=== PATIENT | female | born 1940 | race Caucasian/White ===

== ENCOUNTER 2020-05-28 13:18 | Outpatient (CLI) | payer MEDICARE, OTHER ==
[2020-05-28 16:45] LABS: Hemoglobin 10.3 g/dL (12.0-15.5); Mean Corpuscular HGB CONC 31.3 g/dL (32.0-36.0); Mean Corpuscular Hemoglobin 27.6 pg (27.0-33.0); Mean Corpuscular Volume 88.2 fl (81.6-98.3); Mean Platelet Volume 11.3 fl (7.4-10.4); Platelet Count 126 10x3/uL (150-450); RBC Distribution Width 13.2 % (11.5-14.5); Red Blood Cell (RBC) Count 3.73 10x6/uL (3.90-5.03); White Blood Cell (WBC) Count 4.5 10x3/uL (3.5-10.5)
[2020-05-28 16:55] LABS: Anion Gap 8 mmol/L (10-20); BUN (Urea Nitrogen) 37 mg/dL (9.8-20.1); Calc. Creatinine Clearance 0 mL/min (70-130); Carbon Dioxide 33 mmol/L (23-31); Chloride 104 mmol/L (98-107); Glucose 75 mg/dL (83-110); Potassium 5.1 mmol/L (3.5-5.1); Sodium 140 mmol/L (136-145)
[2020-05-28 17:01] LABS: INR-International Normal Ratio 0.9; PTT 29.5 sec (22.0-33.0); Prothrombin Time 10.3 sec (9.5-12.1)
[2020-05-29 01:48] LABS: SARS-CoV-2 PCR by NAA Not Detected (NotDetected)
== END 2020-05-28 13:19 | disposition home or self-care (01) ==
LOC: LABBT 13:18
PROVIDERS: ATTEND Surgery
DX: Z01.818 Encounter for other preprocedural examination (principal); Z20.822 Contact with and (suspected) exposure to COVID-19
CPT/HCPCS: 80048; 85027; 85610; 85730; 93005; U0003; U0005; 87635; 93010

== ENCOUNTER 2020-06-02 05:52 | Inpatient (IN) | payer MEDICARE, OTHER ==
[2020-06-02] MEDS ORDERED: Thrombin 5000 UNITS/5 ML VIAL ONE (06:36)
[2020-06-02] MEDS ORDERED: Fentanyl 250 MCG/5 ML VIAL ONE (06:48)
[2020-06-02] MEDS ORDERED: Dexmedetomidine 200 MCG/2 ML VIAL ONE (06:48)
[2020-06-02] MEDS ORDERED: Ketamine 50 MG/ML (10ML VIAL) ONE (06:48)
[2020-06-02] MEDS ORDERED: Acetaminophen/Codeine 30-300mg Tablet PO PRN (07:27)
[2020-06-02] MEDS ORDERED: Acetaminophen 325 MG TAB PO PRN (07:27)
[2020-06-02] MEDS ORDERED: Bisacodyl 10 MG SUPP PR PRN (07:27)
[2020-06-02] MEDS ORDERED: traMADol HCl 50 MG TAB PO PRN (07:27)
[2020-06-02] MEDS ORDERED: Ondansetron PF 4 MG/2 ML Vial IVP PRN (07:27)
[2020-06-02] MEDS ORDERED: tiZANidine HCl 4 MG TAB PO PRN (07:27)
[2020-06-02] MEDS ORDERED: Milk Of Magnesia 30 ML UDCUP PO PRN (07:27)
[2020-06-02] MEDS ORDERED: Mag-Al 1200 mg/1200 mg/30 ML UDCUP PO PRN (07:27)
[2020-06-02] MEDS ORDERED: ESTROGENS CONJUGATED VG SCH (07:30)
[2020-06-02] MEDS ORDERED: Rocuronium Bromide 10 MG/ML (10ML VIAL) ONE (07:34)
[2020-06-02] MEDS ORDERED: Ondansetron PF 4 MG/2 ML Vial ONE (07:34)
[2020-06-02] MEDS ORDERED: Lidocaine 1% PF 5 ML VIAL ONE (07:34)
[2020-06-02] MEDS ORDERED: Dexamethasone 20 MG/5 ML VIAL ONE (07:34)
[2020-06-02] MEDS ORDERED: PROPOFOL 200 MG/20 ML VIAL ONE (07:34)
[2020-06-02] MEDS ORDERED: Estrogens, Conjugated 30 GM TUBE VAG SCH (08:00)
[2020-06-02] MEDS ORDERED: Cholecalciferol 1,000 UNITS (25 MCG) TAB PO SCH (09:00)
[2020-06-02] MEDS ORDERED: SUGAMMADEX SODIUM 200 MG/2 ML VIAL ONE (09:27)
[2020-06-02] MEDS ORDERED: PACU-Morphine 4MG/ML VIAL SLOW IVP PRN (09:46)
[2020-06-02] MEDS ORDERED: Morphine Sulfate 2 MG/ML SYRINGE SLOW IVP PRN (09:46)
[2020-06-02] MEDS ORDERED: Promethazine HCl 25 MG/ML VIAL IM PRN (09:46)
[2020-06-02] MEDS ORDERED: Promethazine HCl 25 MG/ML VIAL SLOW IVP PRN (09:46)
[2020-06-02] MEDS ORDERED: HYDROmorphone 2 MG/ML VIAL SLOW IVP PRN (09:46)
[2020-06-02] MEDS ORDERED: Ondansetron HCl/PF 4 MG/2 ML Vial IVP PRN (09:46)
[2020-06-02] MEDS ORDERED: HYDROmorphone 2 MG/ML VIAL ONE (11:02)
[2020-06-02] MEDS ORDERED: Morphine 4 MG/ML VIAL ONE ×5 (11:26→12:54)
[2020-06-02 12:08] VITALS: BMI 22.9
[2020-06-02] MEDS: CEFAZOLIN 2 GM in Premix Bag 1 BAG IVPB SCH ×2 (14:00→22:33)
[2020-06-02] MEDS: Sodium Chloride 0.9% 1,000 ML IV SCH ×2 (14:30→21:43)
[2020-06-02] MEDS: Cholecalciferol 1,000 UNITS (25 MCG) TAB PO SCH (14:30)
[2020-06-02] MEDS: fentaNYL 50 mcg/hour Patch TD SCH (14:30)
[2020-06-02] MEDS: Furosemide 20 MG TAB PO SCH (14:31)
[2020-06-02] MEDS: Thyroid 30 MG TAB PO SCH (14:31)
[2020-06-02] MEDS: PARoxetine 20 MG TAB PO SCH (14:31)
[2020-06-02] MEDS: Morphine 2 MG/ML VIAL SLOW IVP PRN ×2 (19:51→22:33)
[2020-06-02] MEDS: Pregabalin 75 MG CAP PO SCH (19:52)
[2020-06-02] MEDS: Atorvastatin Calcium 10 MG TAB PO SCH (19:52)
[2020-06-03] MEDS: Morphine 2 MG/ML VIAL SLOW IVP PRN ×7 (04:29→21:17)
[2020-06-03] MEDS: CEFAZOLIN 2 GM in Premix Bag 1 BAG IVPB SCH ×3 (05:25→21:53)
[2020-06-03 06:35] LABS: #Lymphocytes 1.2 thou/uL (1.20-3.40); #Monocytes 0.8 thou/uL (0.11-0.59); #Neutrophils 7.7 thou/uL (1.40-6.50); %Basophils 0.3 % (0.0-1.0); %Eosinophils 0.2 % (0.0-10.0); %Monocytes 8.5 % (0.0-10.0); %Neutrophils 78.9 % (42.0-75.0); Hemoglobin 9.8 g/dL (12.0-16.0); Mean Corpuscular HGB CONC 33.2 g/dL (32.0-36.0); Mean Corpuscular Hemoglobin 28.9 pg (27.0-31.0); Mean Corpuscular Volume 86.8 fL (78.0-98.0); Mean Platelet Volume 8.6 fL (7.4-10.4); Platelet Count 127 thou/uL (130-400); RBC Distribution Width 12.2 % (11.5-14.5); White Blood Cell (WBC) Count 9.7 thou/uL (4.8-10.8)
[2020-06-03 06:53] LABS: Anion Gap 10 mmol/L (10-20); BUN (Urea Nitrogen) 19 mg/dL (9.8-20.1); Calc. Creatinine Clearance 53 mL/min (70-130); Calcium 8.8 mg/dL (7.8-10.44); Carbon Dioxide 29 mmol/L (23-31); Chloride 105 mmol/L (98-107); Glucose 105 mg/dL (83-110); Sodium 140 mmol/L (136-145)
[2020-06-03] MEDS: tiZANidine HCl 4 MG TAB PO PRN (08:16)
[2020-06-03] MEDS: Cholecalciferol 1,000 UNITS (25 MCG) TAB PO SCH (08:17)
[2020-06-03] MEDS: Furosemide 20 MG TAB PO SCH ×2 (08:17→10:41)
[2020-06-03] MEDS: PARoxetine 20 MG TAB PO SCH (08:17)
[2020-06-03] MEDS: Dexamethasone 20 MG/5 ML VIAL SLOW IVP SCH ×2 (10:30→16:52)
[2020-06-03] MEDS: Thyroid 30 MG TAB PO SCH (10:50)
[2020-06-03] MEDS ORDERED: Dexamethasone 4 mg/ml Vial SLOW IVP SCH (11:45)
[2020-06-03] MEDS: HYDROcodone/Acetaminophen 7.5/325 mg Tablet PO PRN ×2 (11:46→17:35)
[2020-06-03] MEDS: Sodium Chloride 0.9% 1,000 ML IV SCH ×2 (11:51→23:48)
[2020-06-03 19:12] VITALS: BP 117/56; TEMP 98.6
[2020-06-03] MEDS: Atorvastatin Calcium 10 MG TAB PO SCH (21:13)
[2020-06-03] MEDS: Pregabalin 75 MG CAP PO SCH (21:13)
[2020-06-04] MEDS: Morphine 2 MG/ML VIAL SLOW IVP PRN ×2 (00:56→13:54)
[2020-06-04] MEDS: tiZANidine HCl 4 MG TAB PO PRN (06:13)
[2020-06-04] MEDS: CEFAZOLIN 2 GM in Premix Bag 1 BAG IVPB SCH (06:13)
[2020-06-04] MEDS: HYDROcodone/Acetaminophen 7.5/325 mg Tablet PO PRN ×2 (06:14→13:48)
[2020-06-04] MEDS ORDERED: Dexamethasone 4 MG TAB PO SCH ×2 (08:15→12:00)
[2020-06-04] MEDS: fentaNYL 50 mcg/hour Patch TD SCH (08:51)
[2020-06-04] MEDS: PARoxetine 20 MG TAB PO SCH (08:52)
[2020-06-04] MEDS: Cholecalciferol 1,000 UNITS (25 MCG) TAB PO SCH (08:53)
[2020-06-04] MEDS: Furosemide 20 MG TAB PO SCH (08:54)
[2020-06-04] MEDS: Thyroid 30 MG TAB PO SCH (08:59)
[2020-06-04] MEDS: Sodium Chloride 0.9% 1,000 ML IV SCH (13:55)
[2020-06-04] MEDS ORDERED: Gabapentin 100 MG CAP PO SCH (14:00)
[2020-06-04] MEDS ORDERED: Pregabalin 75 MG CAP PO SCH (21:00)
[2020-06-05] MEDS ORDERED: Dexamethasone 1 MG TAB PO SCH (06:00)
[2020-06-06] MEDS ORDERED: Dexamethasone 1 MG TAB PO SCH (06:00)
[2020-06-07] MEDS ORDERED: Dexamethasone 1 MG TAB PO SCH (06:00)
== END 2020-06-04 16:00 | DRG 472 ==
LOC: SDC 05:52 → ONC 07:27 → SDC 06-03 14:46
PROVIDERS: ADMIT Surgery; ATTEND Surgery
PROC: 0RG20A0 Fusion of 2 or more Cervical Vertebral Joints with Interbody Fusion Device, Anterior Approach, Anterior Column, Open Approach (ICD-10-PCS; principal; 2020-06-03)
PROC: 0RB30ZZ Excision of Cervical Vertebral Disc, Open Approach (ICD-10-PCS; 2020-06-03)
PROC: 01N10ZZ Release Cervical Nerve, Open Approach (ICD-10-PCS; 2020-06-03)
DX: M48.02 Spinal stenosis, cervical region (principal); G95.9 Disease of spinal cord, unspecified; M54.12 Radiculopathy, cervical region; Z20.822 Contact with and (suspected) exposure to COVID-19
CPT/HCPCS: 36415; 76000; 80048; 85025; C1713; C1768; C1776; J0690; J1100; J1170; J2270; J2405; J2704; J3010; J8540